=== PATIENT | female | born 1995 ===

== ENCOUNTER 2018-04-02 20:33 | Emergency (ER) | payer SELFPAY ==
[2018-04-02 20:55] VITALS: RESP 16
[2018-04-02] MEDS ORDERED: Sodium Chloride 0.9% 1,000 ML IV ONE ×2 (20:58→22:15)
[2018-04-02 21:06] LABS: BASO # 0.1 K/uL (0.0-0.2); BASO % 0.6 % (0.0-2.0); EOS # 0.1 K/uL (0.0-0.7); EOS % 1.3 % (0.0-4.0); HEMOGLOBIN 13.7 g/dL (11.0-16.0); LYMPH # 2.5 K/uL (1.0-4.3); LYMPH % 28.6 % (20.0-40.0); MEAN CORPUSCULAR HEMOGLOBIN 29.7 pg (27.0-31.0); MEAN PLATELET VOLUME 8.3 fL (7.2-11.7); MONO # 0.6 K/uL (0.0-0.8); NEUT # 5.4 K/uL (1.8-7.0); NEUT % 62.5 % (50.0-75.0); RBC 4.6 Mil/uL (3.80-5.20); RED CELL DISTRIBUTION WIDTH 12.1 % (11.5-14.5); WHITE BLOOD COUNT 8.6 K/uL (4.8-10.8)
--- NOTE | 2018-04-02 21:13 | C.PDOC ---
History Of Present Illness 22 y/o female, approximately 7 weeks gestation, presents complaining of vomiting for the last 2 weeks. Patient states she is not able to keep anything down. Reports noticing blood-tinged emesis yesterday and today. Denies any fevers, abdominal pain, diarrhea, or bloody/dark stools. Time Seen by Provider: 04/02/18 20:45 Chief Complaint (Nursing): Abdominal Pain History Per: Patient History/Exam Limitations: no limitations Onset/Duration Of Symptoms: Days Current Symptoms Are (Timing): Still Present Associated Symptoms: Nausea, Vomiting Abnormal Vaginal Bleeding: No : 1 Para: 0 Past Medical History Reviewed: Historical Data, Nursing Documentation, Vital Signs Vital Signs: Last Vital Signs Temp 98.6 F 04/02/18 20:47 Pulse 87 04/02/18 20:47 Resp 16 04/02/18 20:47 BP 121/84 04/02/18 20:47 Pulse Ox 98 04/02/18 20:47 - Medical History PMH: No Chronic Diseases Surgical History: No Surg Hx Family History: States: No Known Family Hx - Social History Hx Tobacco Use: No Hx Alcohol Use: No Hx Substance Use: No Review Of Systems Except As Marked, All Systems Reviewed And Found Negative. Constitutional: Negative for: Fever, Chills Gastrointestinal: Positive for: Nausea, Vomiting. Negative for: Abdominal Pain, Diarrhea, Melena, Hematochezia Genitourinary: Negative for: Dysuria, Frequency, Vaginal Discharge, Vaginal Bleeding Musculoskeletal: Negative for: Back Pain Physical Exam - Physical Exam Appears: Non-toxic, No Acute Distress Skin: Warm, Dry Head: Atraumatic, Normacephalic Eye(s): bilateral: Normal Inspection, PERRL, EOMI Oral Mucosa: Dry Neck: Normal ROM, Supple Chest: Symmetrical Cardiovascular: Rhythm Regular, No Murmur Respiratory: Normal Breath Sounds, No Rales, No Rhonchi, No Wheezing Gastrointestinal/Abdominal: Soft, No Tenderness, No Guarding, No Rebound Rectal: Other (Pt refuses) Back: No CVA Tenderness, No Vertebral Tenderness Extremity: Bilateral: Atraumatic, Normal Color And Temperature, Normal ROM Neurological/Psych: Oriented x3, Normal Speech ED Course And Treatment - Laboratory Results Result Diagrams: 04/02/18 21:02 04/02/18 21:02 O2 Sat by Pulse Oximetry: 98 (RA) Pulse Ox Interpretation: Normal Medical Decision Making Medical Decision Making: Impression: Vomiting during /hyperemesis Plan: --Blood work --UA --Urine HCG --Occult blood, stool --Transvaginal/OB US --IV fluids --10 mg IV Reglan --4 mg IV Zofran --Vitamin B6 25mg PO --Reassess and dispo pt refuses rectal h/h stable. suspect erin maya. bun/cr nromal upper gi bleed unlikely. pt states "feels much better". suggested pt wait in er for ivf, po challenge and clearing of ketones. declines asking for immdiate dc. Disposition - Disposition Referrals: [facility] [Outside] [facility] [Outside] [facility] [Outside] Disposition: HOME/ ROUTINE Disposition Time: 23:00 Condition: GOOD Additional Instructions: you are refusing further assessment in the hospital. you are able to return to any er with wrosening. please follow up with your obgyn. Prescriptions: RX: Cefpodoxime [Vantin] 100 mg PO BID #20 tab Instructions: Hyperemesis Gravidarum, Morning Sickness (DC), Asymptomatic Bacteriuria Forms: [employer] (Burmese) - Clinical Impression Clinical Impression: Hyperemesis gravidarum - Scribe Statement The provider has reviewed the documentation as recorded by the Kaveh Martinez Provider Attestation: All medical record entries made by the Neemaibe were at my direction and personally dictated by me. I have reviewed the chart and agree that the record accurately reflects my personal performance of the history, physical exam, medical decision making, and the department course for this patient. I have also personally directed, reviewed, and agree with the discharge instructions and disposition.
[2018-04-02 21:14] LABS: INR 1.2
[2018-04-02 21:20] LABS: ALB/GLOB RATIO 1.3 (1.0-2.1); ALBUMIN 4.3 g/dL (3.5-5.0); ALT/SGPT 29 U/L (9-52); AST/SGOT 36 U/L (14-36); BLOOD UREA NITROGEN 8 mg/dL (7-17); CALCIUM 9.3 mg/dl (8.6-10.4); GFR NON-AFRICAN AMERICAN > 60; LIPASE 65 U/L (23-300)
[2018-04-02] MEDS ORDERED: Potassium Chloride 20 mEq ER Tab PO STA (21:21)
[2018-04-02] MEDS ORDERED: Potassium Chloride 20 mEq ER Tab PO ONE (21:28)
[2018-04-02 22:51] LABS: SQUAMOUS EPITHIAL 6 /hpf (0-5); URINE AMORPHOUS SEDIMENT RARE /ul (<OCC); URINE BILIRUBIN NEGATIVE (NEGATIVE); URINE BLOOD NEGATIVE (NEGATIVE); URINE CLARITY Hazy (Clear); URINE COLOR Yellow (YELLOW); URINE GLUCOSE (UA) NORMAL (Normal); URINE LEUKOCYTE ESTERASE 1+ Leu/uL (Negative); URINE PROTEIN NEGATIVE (NEGATIVE); URINE UROBILINOGEN NORMAL mg/dL (0.2-1.0)
[2018-04-02 23:56] VITALS: BP 101/61; PULSE 78; TEMP 98.5
[2018-04-03 00:15] VITALS: O2SAT 98
--- NOTE | 2018-04-03 13:32 | US ---
Date of service: 04/02/2018 PROCEDURE: OB Pelvic Ultrasound HISTORY: , vomiting LMP: 02/06/2018 suggesting a 7 week 6 day gestation. COMPARISON: None available. FINDINGS: UTERUS: Gestational sac: A single viable intrauterine gestation is identified with pole yolk sac identified as well as cardiac activity. Decidual reaction appears unremarkable. Heart rate: 134 bpm. age (Ultrasound estimated): 7 weeks 0 days based on CRL mean, concordant with menstrual dates. Gestational sac mean diameter 3.85 cm corresponds to 9 weeks 1 day. Yolk sac measures 0.26 cm. Nahomi-gestational hemorrhage: Small posterior and inferior chorionic hemorrhage is questioned no possibly subacute or even early chronic. Date of delivery (Ultrasound estimated) : 11/11/2018. Uterus measures 9.9 x 5.3 x 6.4 cm. Normal in size, averaged, with a small subserosal fibroid identified anterolaterally toward the right measuring 1.5 x 1.2 x 1.5 cm. CERVIX: Measures 3.2 cm. Long and closed. No cervical abnormality seen. RIGHT OVARY: Measures 2.3 x 2.3 x 2.7 cm. No mass lesion. Normal flow. Right corpus luteum cyst identified measure 1.3 cm greatest dimension. LEFT OVARY: Measures 2.7 x 1.7 x 2.8 cm. No solid mass. Normal flow. FREE FLUID: None. OTHER FINDINGS: None. IMPRESSION: Single viable intrauterine gestation is identified with estimated ultrasonic age of 7 weeks 0 days which concordant with LMP derived dates of 7 weeks 6 days as discussed above. cardiac activity 134 beats per minute. Small subchorionic hemorrhage is questioned related to the decidual reaction. Right corpus luteum cyst 1.3 cm. Concordant preliminary report from DORETHARegency [facility], 04/02/2018.
== END 2018-04-02 23:56 | disposition home or self-care (01) ==
LOC: C.ER 20:33
DX: O21.0 Mild hyperemesis gravidarum (principal); Z3A.01 Less than 8 weeks gestation of pregnancy
CPT/HCPCS: 76805; 76817; 80053; 81001; 83690; 84702; 84703; 85025; 85610; 85730; 86850; 86900; 96361; 96374; 99285; J2765; J7030

== ENCOUNTER 2018-09-06 06:48 | Emergency (ER) | payer SELFPAY ==
[2018-09-06 06:58] VITALS: BP 110/75; PULSE 90; RESP 16; TEMP 97.8; O2SAT 99
[2018-09-06] MEDS ORDERED: Sodium Chloride 0.9% 500 ML IV ONE (07:18)
--- NOTE | 2018-09-06 08:08 | C.PDOC ---
History Of Present Illness 23 year old female presents to the ED complaining of frontal headache associated with nausea and dizziness starting around 3am. She states she vomited once. She has not taken any medications. Denies fever, chest pain, SOB, weakness, numbness, abdominal pain, vaginal bleeding. Patient is 29 weeks . Time Seen by Provider: 09/06/18 07:07 Chief Complaint (Nursing): Headache History Per: Patient History/Exam Limitations: no limitations Onset/Duration Of Symptoms: Hrs Current Symptoms Are (Timing): Still Present Past Medical History Reviewed: Historical Data, Nursing Documentation, Vital Signs Vital Signs: Last Vital Signs Temp 97.8 F 09/06/18 06:53 Pulse 90 09/06/18 06:53 Resp 16 09/06/18 06:53 BP 110/75 09/06/18 06:53 Pulse Ox 99 09/06/18 06:53 Surgical History: No Surg Hx Family History: States: No Known Family Hx - Social History Hx Tobacco Use: No Hx Alcohol Use: No Hx Substance Use: No Review Of Systems Constitutional: Negative for: Fever, Chills Eyes: Negative for: Vision Change Cardiovascular: Negative for: Chest Pain Respiratory: Negative for: Shortness of Breath Gastrointestinal: Positive for: Nausea, Vomiting. Negative for: Diarrhea Skin: Negative for: Rash Neurological: Positive for: Headache. Negative for: Weakness, Numbness, Dizziness Physical Exam - Physical Exam Appears: Well, Non-toxic, No Acute Distress Skin: Warm, Dry, No Rash Head: Atraumatic, Normacephalic Eye(s): bilateral: Normal Inspection, PERRL, EOMI Oral Mucosa: Moist Neck: Normal ROM Chest: Symmetrical Cardiovascular: Rhythm Regular, No Murmur Respiratory: Normal Breath Sounds, No Rales, No Rhonchi, No Wheezing Gastrointestinal/Abdominal: Bowel Sounds, Soft, No Tenderness, No Guarding Extremity: Bilateral: Atraumatic, Normal Color And Temperature, Normal ROM Neurological/Psych: Oriented x3, Normal Speech, Normal Cognition, Normal Cranial Nerves, Normal Motor, Normal Sensation, Other (no focal deficits) Gait: Steady ED Course And Treatment O2 Sat by Pulse Oximetry: 99 (RA) Pulse Ox Interpretation: Normal Medical Decision Making Medical Decision Making: Impression: Headache, vomiting and dizziness in patient Plan: * IV NS * IV Reglan * Oral Tylenol Progress: 08:00am the RN informs me the patient eloped from ED prior to receiving treatment. The patient had no fever and normal vital signs. She was alert and oriented without neuro deficits. Disposition - Disposition Disposition: ELOPEMENT - ER ONLY Disposition Time: 08:00 Condition: STABLE - POA Present On Arrival: None - Clinical Impression Clinical Impression: Eloped from emergency department, Headache - PA / GENERAL ADMINISTRATOR / Resident Statement MD/DO has reviewed & agrees with the documentation as recorded. - Scribe Statement The provider has reviewed the documentation as recorded by the Scriblenka Martinez All medical record entries made by the Kaveh were at my direction and personally dictated by me. I have reviewed the chart and agree that the record accurately reflects my personal performance of the history, physical exam, medical decision making, and the department course for this patient. I have also personally directed, reviewed, and agree with the discharge instructions and disposition.
== END 2018-09-06 07:35 | disposition left against medical advice (07) ==
LOC: C.ER 06:48
DX: R51 Headache (principal); O26.893 Other specified pregnancy related conditions, third trimester; Z3A.29 29 weeks gestation of pregnancy